=== PATIENT | female | born 1990 | race Caucasian/White ===

== ENCOUNTER 2020-02-18 12:34 | Emergency (ER) | payer MEDICAID ==
[~2020-02-18] VITALS: Ht 157.5 cm; Wt 85.0 kg
[~2020-02-18 12:34] MED LIST: NO HOME MEDS; ONDA4TAB6 PO
[2020-02-18 14:12] LABS: CLARITY,URINE CLEAR (Clear); GLUCOSE, URINE NEGATIVE (Neg); KETONES,URINE NEGATIVE (Neg); LEUKOCYTE ESTERASE ,URINE MODERATE (Neg); NITRITES, URINE NEGATIVE (Neg); OCCULT BLOOD,URINE LARGE (Neg); PROTEIN,URINE NEGATIVE (Neg); UROBILINOGEN,URINE 0.2 E.U/dL (0.2-1.0)
[2020-02-18 14:13] LABS: COLOR,URINE STRAW (Yellow); UA COLLECTION TYPE CLN CATCH MIDSTREAM
[2020-02-18 14:15] LABS: URINE HCG NEGATIVE (NEG)
[2020-02-18 14:18] LABS: BACTERIA,URINE 1+ /HPF (Neg); MUCUS STRANDS NONE SEEN /LPF (Neg); RBC,URINE 0-2 /HPF (0-2); SQUAMOUS EPITHELIAL CELL,UR NONE SEEN /LPF (FEW); WBC CLUMPS,URINE FEW /HPF (NEGATIVE)
[2020-02-18] MEDS ORDERED: NITR100C6 PO (14:41)
[2020-02-18] MEDS ORDERED: PHEN-824 PO (14:41)
[2020-02-18 14:49] VITALS: BP 109/64
== END 2020-02-18 14:50 | disposition home or self-care (01) ==
LOC: ER 12:34
DX: N39.0 Urinary tract infection, site not specified (principal); R30.9 Painful micturition, unspecified; G89.29 Other chronic pain; F41.9 Anxiety disorder, unspecified; Z72.89 Other problems related to lifestyle; Z56.0 Unemployment, unspecified; Z88.5 Allergy status to narcotic agent; Z88.1 Allergy status to other antibiotic agents; Z88.8 Allergy status to other drugs, medicaments and biological substances; Z79.899 Other long term (current) drug therapy
CPT/HCPCS: 81001; 81025; 87077; 87088; 87186; 99283

== ENCOUNTER 2024-11-19 19:38 | Emergency (ER) | payer MEDICAID ==
[~2024-11-19] VITALS: Ht 157.5 cm; Wt 73.0 kg
[~2024-11-19 19:38] MED LIST changes: +NITR100C6 PO; +PHEN-824 PO
[2024-11-19] MEDS: diphenhydrAMINE 50 mg/ml inj IM ONE ×2 (21:18→22:09)
[2024-11-19] MEDS ORDERED: famotidine 10mg tablet PO STA (21:53)
[2024-11-19] MEDS: famotidine 20mg tablet PO STA (22:06)
[2024-11-19] MEDS: LORazepam 1 MG tablet PO ONE (22:06)
[2024-11-19] MEDS: dexamethasone sod phosphate 10mg/ml inj IM STA (22:08)
[2024-11-19] MEDS ORDERED: LORA-269 PO (22:42)
[2024-11-19] MEDS ORDERED: DIPH25TA62 PO (22:42)
[2024-11-19] MEDS ORDERED: FAMO-129 PO (22:42)
[2024-11-19] MEDS ORDERED: PRED20TA PO (22:42)
[2024-11-19 22:47] VITALS: BP 134/84; PULSE 85; RESP 16; TEMP 98.6; O2SAT 99
== END 2024-11-19 22:49 | disposition home or self-care (01) ==
LOC: ER 19:39
DX: G24.9 Dystonia, unspecified (principal); T78.40XA Allergy, unspecified, initial encounter; R22.9 Localized swelling, mass and lump, unspecified; F41.9 Anxiety disorder, unspecified; Z88.1 Allergy status to other antibiotic agents; Z88.5 Allergy status to narcotic agent; Z88.8 Allergy status to other drugs, medicaments and biological substances; W19.XXXA Unspecified fall, initial encounter
CPT/HCPCS: 96372; 99284; J1100; J1200

== ENCOUNTER 2024-11-20 10:25 | Emergency (ER) | payer MEDICAID ==
[~2024-11-20] VITALS: Ht 157.5 cm; Wt 70.5 kg
[~2024-11-20 10:25] MED LIST changes: +DIPH25TA62 PO; +FAMO-129 PO; +LORA-269 PO; +PRED20TA PO
[2024-11-20 11:16] LABS: BASOPHILS % (AUTO) 0.2 % (0-1); EOSINOPHILS % (AUTO) 0 % (0-6); HEMATOCRIT 39.8 % (35.0-45.0); HEMOGLOBIN 13.5 g/dl (12.0-16.0); LYMPHOCYTES # (AUTO) 0.9 X10'3 (1.1-4.8); LYMPHOCYTES % (AUTO) 12.6 % (21-51); MEAN CORPUSCULAR HEMOGLOBIN 30.2 PG (27.0-31.0); MEAN CORPUSCULAR VOLUME 88.9 FL (78-98); MONOCYTES # (AUTO) 0.5 X10'3 (0-0.9); MONOCYTES % (AUTO) 7.1 % (2-12); NEUTROPHILS # (AUTO) 5.6 X10'3 (1.8-7.7); NEUTROPHILS % (AUTO) 80.1 % (42-75); PLATELET COUNT 427 X10'3 (140-440); RED BLOOD COUNT 4.47 X10'6 (4.20-5.60); RED CELL DISTRIBUTION WIDTH 16.6 % (11.5-14.5); WHITE BLOOD COUNT 7.1 X10'3 (4.5-11.0)
[2024-11-20 11:31] LABS: BILIRUBIN,URINE NEGATIVE (Neg); CLARITY,URINE CLEAR (Clear); COLOR,URINE STRAW (Yellow); GLUCOSE, URINE NEGATIVE (Neg); KETONES,URINE 15 mg/dl (Neg); LEUKOCYTE ESTERASE ,URINE NEGATIVE (Neg); NITRITES, URINE NEGATIVE (Neg); OCCULT BLOOD,URINE NEGATIVE (Neg); PROTEIN,URINE NEGATIVE (Neg); URINE HCG NEGATIVE (NEG); UROBILINOGEN,URINE 0.2 E.U/dL (0.2-1.0)
[2024-11-20 11:37] LABS: URINE AMPHETAMINE SCREEN NEGATIVE (Neg); URINE BARBITUATE SCREEN NEGATIVE (Neg); URINE BENZODIAZEPINES SCREEN NEGATIVE (Neg); URINE CANNABINOID SCREEN NEGATIVE (Neg); URINE COCAINE SCREEN NEGATIVE (Neg); URINE METHADONE SCREEN NEGATIVE (Neg); URINE OPIATE SCREEN NEGATIVE (Neg); URINE PHENCYCLIDINE SCREEN NEGATIVE (Neg)
[2024-11-20 11:39] LABS: UA COLLECTION TYPE CLN CATCH MIDSTREAM
[2024-11-20 11:39] LABS: ALBUMIN 4.8 G/DL (3.4-5.0); ANION GAP 14 (8-16); BLOOD UREA NITROGEN 3 MG/DL (7-18); BUN/CREATININE RATIO 4.1 (10.0-20.0); CALCIUM 9.3 MG/DL (8.5-10.1); CHLORIDE 92 MMOL/L (99-107); CREATININE 0.74 MG/DL (0.40-0.90); ETHANOL < 10 MG/DL (<10); GLUCOSE 110 MG/DL (70-104); SODIUM 127 MMOL/L (135-145); THYROID STIMULATING HORMONE 0.76 ulU/ml (0.34-4.50); TOTAL CARBON DIOXIDE 21.3 MMOL/L (24-32); eCRCL 86 ML/MIN; eGFR 90 ML/MIN
[2024-11-20] MEDS: normal saline 1000ML IV soln IVB ONE (13:02)
[2024-11-20 16:18] VITALS: BP 136/82; PULSE 89; RESP 16; TEMP 98.4; O2SAT 98
== END 2024-11-20 16:34 | disposition home or self-care (01) ==
LOC: ER 10:26
DX: F29 Unspecified psychosis not due to a substance or known physiological condition (principal); F41.0 Panic disorder [episodic paroxysmal anxiety]; F32.A Depression, unspecified; F25.9 Schizoaffective disorder, unspecified; Z20.822 Contact with and (suspected) exposure to COVID-19; Z88.1 Allergy status to other antibiotic agents; Z88.5 Allergy status to narcotic agent; Z88.8 Allergy status to other drugs, medicaments and biological substances
CPT/HCPCS: 36415; 80048; 80305; 80320; 81003; 81025; 84443; 85025; 87811; 96360; 99284; J7030; A6449